=== PATIENT | female | born 1960 | race American Indian/Alaskan Native ===

== ENCOUNTER 2017-06-07 11:43 | Emergency (ER) | payer OTHER ==
[2017-06-07] MEDS ORDERED: TORADOL IM ONE (12:33)
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
[2017-06-07 14:39] VITALS: BP 148/82
== END 2017-06-07 14:39 | disposition home or self-care (01) ==
LOC: ED 11:43
DX: S49.92XA Unspecified injury of left shoulder and upper arm, initial encounter (principal); M79.1 Myalgia; F17.200 Nicotine dependence, unspecified, uncomplicated; V49.49XA Driver injured in collision with other motor vehicles in traffic accident, initial encounter; Y93.89 Activity, other specified; Y92.89 Other specified places as the place of occurrence of the external cause; Y99.8 Other external cause status
CPT/HCPCS: 73030; 73502; 96372; 99283; J1885